=== PATIENT | female | born 1975 | race Two or more races ===

== ENCOUNTER 2023-09-21 13:54 | Emergency (ER) | payer OTHER ==
[~2023-09-21] VITALS: Ht 170.2 cm; Wt 61.2 kg
[~2023-09-21 13:54] MED LIST: KETO10TA2 PO
[2023-09-21] MEDS ORDERED: PROMETRIUM200 MG PO (13:59)
[2023-09-21] MEDS ORDERED: ESTRACE0.5 MG PO (14:00)
[2023-09-21 17:26] LABS: HEMATOCRIT 39.4 % (36.0-45.00); HEMOGLOBIN 13.2 g/dL (12.0-15.00); MEAN CELL VOLUME 86.2 fL (80.00-100.00); MEAN CORPUSCULAR HEMOGLOBIN 28.9 pg (27.00-32.0); MEAN CORPUSCULAR HGB CONC 33.5 g/dl (32.0-36.0); PLATELET COUNT 212 K/uL (150-450); RED BLOOD COUNT 4.57 M/uL (4.00-6.00); RED CELL DISTRIBUTION WIDTH 13.1 % (11.5-14.5)
[2023-09-21 17:53] LABS: ALBUMIN 4.3 gm/dL (3.4-5.0); BILIRUBIN TOTAL 0.61 mg/dL (0.3-1.2); CALCIUM 9.5 mg/dL (8.5-10.1); CKMB 1.1 NG/ML (0.5-3.6); CREATININE SERUM 0.77 mg/dL (0.55-1.02); GFR 80.35; GLOBULINA 3.6 G/DL (2.4-3.5); POTASSIUM 3.91 mEq/L (3.5-5.1); TOTAL PROTEIN 7.9 gm/dL (6.4-8.2)
== END 2023-09-21 19:10 | disposition home or self-care (01) ==
LOC: ER 13:54
PROVIDERS: Emergency Medicine
DX: R55 Syncope and collapse (principal); R53.81 Other malaise; Z20.822 Contact with and (suspected) exposure to COVID-19